=== PATIENT | female | born 1985 | race Hispanic/Latino ===

== ENCOUNTER 2017-02-21 19:41 | Inpatient (IN) | payer MEDICAID, OTHER ==
[~2017-02-21] VITALS: Ht 157.5 cm; Wt 94.8 kg
[2017-02-21] MEDS ORDERED: SODIUM CHLORIDE 0.9% 1000ML 2,000 ML IV ONE (19:56)
[2017-02-21] MEDS ORDERED: ACETAMINOPHEN EXTRA STRENGTH 500 MG TABLET ONE (19:56)
[2017-02-21] MEDS ORDERED: GUAIFENESIN-CODEINE 5 ML SYRUP ONE (20:13)
[2017-02-21 20:22] LABS: BASOPHILS % (AUTO) 0.5 % (0.0-5.0); HEMATOCRIT 33.4 % (36-48); LYMPHOCYTES % (AUTO) 6.6 % (21.0-51.0); MEAN CORPUSCULAR HEMOGLOBIN 28.2 pg (27.0-33.0); MEAN CORPUSCULAR HGB CONC 34.1 g/dL (32.0-36.0); MEAN CORPUSCULAR VOLUME 82.8 fL (79-99); MONOCYTES % (AUTO) 6.5 % (3.0-13.0); NEUTROPHILS % (AUTO) 86.4 % (40.0-77.0); PLATELET COUNT (AUTO) 300 K/uL (130-400); RED BLOOD CELL COUNT(AUTO) 4.03 MIL/uL (4.00-5.50); WHITE BLOOD COUNT (AUTO) 24.4 K/uL (4.8-10.8)
[2017-02-21] MEDS ORDERED: IPRATROPIUM/ALBUTEROL SULFATE 3 ML SOLUTION IH ONE (20:24)
[2017-02-21 20:32] LABS: INR 1.1 (0.85-1.15); PARTIAL THROMBOPLASTIN TIME 29.3 SEC (26.3-35.5); PROTHROMBIN TIME 11.5 SEC (9.6-11.6)
[2017-02-21 20:48] LABS: ALANINE AMINOTRANSFERASE 21 U/L (12-78); ALBUMIN 2.7 g/dL (3.5-5.0); ASPARTATE AMINOTRANSFERASE 21 U/L (10-37); BILIRUBIN,TOTAL 0.8 mg/dL (0.2-1.0); CARBON DIOXIDE 30 mmol/L (21-32); CHLORIDE 92 mmol/L (101-111); CREATINE KINASE MB < 0.5 ng/mL (0.5-3.6); CREATINE KINASE, TOTAL 37 U/L (21-232); CREATININE 0.7 mg/dL (0.5-1.5); GLOMERULAR FILTR. RATE CALC 103 mL/min (>60); GLUCOSE,RANDOM 129 mg/dL (70-105); MYOGLOBIN 28 ng/mL (10-92); SODIUM SERUM 130 mmol/L (136-145); TOTAL PROTEIN, SERUM 7.6 g/dL (6.0-8.3); TROPONIN I < 0.04 ng/mL (0.00-0.06); UREA NITROGEN, BLOOD 3 mg/dL (7-18)
[2017-02-21 20:54] LABS: APPEARANCE,URINE Clear (CLEAR); BILIRUBIN,URINE Negative (NEGATIVE); COLOR,URINE Yellow (YELLOW); GLUCOSE, URINE (UA) Negative (NEGATIVE); KETONES,URINE Negative (NEGATIVE); LEUKOCYTE ESTERASE ,URINE Negative (NEGATIVE); NITRATE,URINE Negative (NEGATIVE); OCCULT BLOOD,URINE Moderate (NEGATIVE); PH,URINE 6.5 (5.0-8.0); PROTEIN,URINE Trace (NEGATIVE)
[2017-02-21 20:56] LABS: POTASSIUM 2.7 mmol/L (3.5-5.1)
[2017-02-21 21:00] LABS: HCG,QUAL RESULT NEGATIVE (NEGATIVE)
[2017-02-21 21:05] LABS: BACTERIA,URINE Rare /HPF (None Seen); RBC,URINE 0-1 /HPF (0-1); WBC,URINE 0-1 /HPF (0-1)
[2017-02-21] MEDS ORDERED: CEFTRIAXONE SODIUM 1 GM ONE (21:10)
[2017-02-21] MEDS ORDERED: POTASSIUM BICARB/CIT AC 25 MEQ TABLET.EFF ONE (21:10)
[2017-02-21] MEDS ORDERED: MAGNESIUM OXIDE 400 MG TABLET PO ONE (21:10)
[2017-02-21] MEDS ORDERED: AZITHROMYCIN 250 MG TABLET PO ONE (21:11)
[2017-02-22] MEDS ORDERED: ONDANSETRON HCL 4 MG/2 ML VIAL IV PRN (01:15)
[2017-02-22] MEDS ORDERED: HYDRALAZINE HCL 20 MG/ML VIAL IV PRN (01:15)
[2017-02-22] MEDS ORDERED: ACETAMINOPHEN 325 MG TAB PO PRN (01:15)
[2017-02-22] MEDS ORDERED: METHYLPREDNISOLONE SOD SUCC 125MG/2ML VIAL ONE (02:42)
[2017-02-22] MEDS ORDERED: SODIUM CHLORIDE 0.9% 1000ML 1,000 ML IV ONE (02:42)
[2017-02-22] MEDS ORDERED: ACETAMINOPHEN-CODEINE 300/30MG TAB ONE (02:43)
[2017-02-22] MEDS ORDERED: IPRATROPIUM/ALBUTEROL SULFATE 3 ML SOLUTION IH ONE ×2 (03:35→10:32)
[2017-02-22] MEDS: IPRATROPIUM/ALBUTEROL SULFATE 3 ML SOLUTION IH SCH ×5 (06:00→22:38)
[2017-02-22] MEDS ORDERED: METHYLPREDNISOLONE SOD SUCC 125MG/2ML VIAL IV SCH (07:37)
[2017-02-22] MEDS: PANTOPRAZOLE SODIUM 40 MG TABLET.DR PO SCH (07:39)
[2017-02-22] MEDS ORDERED: CEFTRIAXONE SODIUM 1 GM ONE (08:31)
[2017-02-22] MEDS ORDERED: DEXTROSE 5%-WATER 50 ML IV ONE (08:32)
[2017-02-22] MEDS ORDERED: PANTOPRAZOLE SODIUM 40 MG TABLET.DR PO ONE (08:32)
[2017-02-22] MEDS ORDERED: CEFTRIAXONE 1GM/D5W 50ML 50 ML IV SCH (09:00)
[2017-02-22 11:00] VITALS: BP 116/72
[2017-02-22] MEDS: SODIUM CHLORIDE 0.9% 1000ML 1,000 ML IV SCH ×2 (11:08→22:47)
[2017-02-22 16:00] VITALS: BP 113/76
[2017-02-22] MEDS: ACETAMINOPHEN-CODEINE 300/30MG TAB PO PRN ×2 (17:03→23:06)
[2017-02-22 20:00] VITALS: BP 127/84
[2017-02-22] MEDS ORDERED: AZITHROMYCIN 500MG+NS 250ML 250 ML IV SCH (21:00)
[2017-02-22] MEDS ORDERED: LIDOCAINE HCL-MPF 1% 2ML VIAL ONE (22:20)
[2017-02-22] MEDS ORDERED: POTASSIUM CHLORIDE 20 MEQ ERTAB PO ONE (22:20)
[2017-02-22] MEDS ORDERED: POTASSIUM CHLORIDE 20MEQ/100ML 100 ML IV ONE (22:21)
[2017-02-22] MEDS ORDERED: POTASSIUM CHLORIDE 20MEQ/100ML 100 ML IV PRN (22:30)
[2017-02-22] MEDS ORDERED: POTASSIUM CHLORIDE 10% ELIXIR 20 MEQ/15 ML UDCUP PO PRN (22:30)
[2017-02-22] MEDS: CEFTRIAXONE SODIUM 1 GM IVP SCH (22:30)
[2017-02-22] MEDS ORDERED: LIDOCAINE HCL-MPF 1% 2ML VIAL IVP PRN (22:30)
[2017-02-22] MEDS: AZITHROMYCIN 250 MG TABLET PO SCH (22:30)
[2017-02-23] VITALS (7 sets, daily range): BP systolic 113–133; BP diastolic 67–81
[2017-02-23] MEDS: POTASSIUM CHLORIDE 20 MEQ ERTAB PO PRN ×3 (00:32→04:08)
[2017-02-23] MEDS: IPRATROPIUM/ALBUTEROL SULFATE 3 ML SOLUTION IH SCH ×6 (01:44→22:39)
[2017-02-23 06:18] LABS: HEMATOCRIT 31.5 % (36-48); MEAN CORPUSCULAR HEMOGLOBIN 27.9 pg (27.0-33.0); MEAN CORPUSCULAR HGB CONC 32.9 g/dL (32.0-36.0); MEAN CORPUSCULAR VOLUME 84.8 fL (79-99); PLATELET COUNT (AUTO) 331 K/uL (130-400); RED BLOOD CELL COUNT(AUTO) 3.72 MIL/uL (4.00-5.50); RED CELL DISTRIBUTION WIDTH 14.1 % (11.0-15.5); WHITE BLOOD COUNT (AUTO) 18.7 K/uL (4.8-10.8)
[2017-02-23 06:35] LABS: CREATININE 0.6 mg/dL (0.5-1.5); POTASSIUM 3.7 mmol/L (3.5-5.1)
[2017-02-23] MEDS: PANTOPRAZOLE SODIUM 40 MG TABLET.DR PO SCH (06:53)
[2017-02-23 07:20] LABS: LYMPHOCYTES % (MANUAL) 14 % (22-44); MONOCYTES % (MANUAL) 5 % (2-9); SEGMENTED NEUTROPHILS % 81 % (40-70)
[2017-02-23 07:21] LABS: MAN.DIFF COMMENT-IMPRESSION MANUAL DIFFERENTIAL; PLATELET MORPHOLOGY COMMENT ADEQUATE
[2017-02-23] MEDS: ACETAMINOPHEN-CODEINE 300/30MG TAB PO PRN ×2 (12:01→23:40)
[2017-02-23] MEDS: SODIUM CHLORIDE 0.9% 1000ML 1,000 ML IV SCH ×2 (12:01→17:08)
[2017-02-23] MEDS: CEFTRIAXONE SODIUM 1 GM IVP SCH (22:01)
[2017-02-23] MEDS: AZITHROMYCIN 250 MG TABLET PO SCH (22:03)
[2017-02-24] MEDS: IPRATROPIUM/ALBUTEROL SULFATE 3 ML SOLUTION IH SCH ×6 (02:41→22:44)
[2017-02-24 03:50] VITALS: BP 127/73
[2017-02-24 06:36] LABS: HEMATOCRIT 29.4 % (36-48); MEAN CORPUSCULAR HEMOGLOBIN 29.9 pg (27.0-33.0); MEAN CORPUSCULAR HGB CONC 35.3 g/dL (32.0-36.0); NUCLEATED RED BLOOD CELLS 0.1 % (0.0-0.19); PLATELET COUNT (AUTO) 349 K/uL (130-400); RED BLOOD CELL COUNT(AUTO) 3.46 MIL/uL (4.00-5.50); RED CELL DISTRIBUTION WIDTH 14.5 % (11.0-15.5); WHITE BLOOD COUNT (AUTO) 10.3 K/uL (4.8-10.8)
[2017-02-24] MEDS: PANTOPRAZOLE SODIUM 40 MG TABLET.DR PO SCH (06:49)
[2017-02-24 07:00] VITALS: BP 132/73
[2017-02-24 07:47] LABS: EOSINOPHILS % (MANUAL) 1 % (1-6); LYMPHOCYTES % (MANUAL) 26 % (22-44); MAN.DIFF COMMENT-IMPRESSION MANUAL DIFFERENTIAL; MONOCYTES % (MANUAL) 5 % (2-9); PLATELET MORPHOLOGY COMMENT ADEQUATE; SEGMENTED NEUTROPHILS % 68 % (40-70)
[2017-02-24 11:00] VITALS: BP 131/83
[2017-02-24] MEDS: GUAIFENESIN 600 MG TABLET.ER PO SCH ×2 (11:54→22:34)
[2017-02-24] MEDS: SODIUM CHLORIDE 0.9% 1000ML 1,000 ML IV SCH ×2 (11:55→23:08)
[2017-02-24 16:00] VITALS: BP 119/92
[2017-02-24 20:02] VITALS: BP 113/79
[2017-02-24] MEDS: AZITHROMYCIN 250 MG TABLET PO SCH (22:34)
[2017-02-24] MEDS: CEFTRIAXONE SODIUM 1 GM IVP SCH (22:34)
[2017-02-24 23:45] VITALS: BP 122/80
[2017-02-25] MEDS: IPRATROPIUM/ALBUTEROL SULFATE 3 ML SOLUTION IH SCH ×4 (02:44→13:28)
[2017-02-25 03:51] VITALS: BP 129/78
[2017-02-25] MEDS: PANTOPRAZOLE SODIUM 40 MG TABLET.DR PO SCH (06:27)
[2017-02-25 07:48] VITALS: BP 120/66
[2017-02-25] MEDS: SODIUM CHLORIDE 0.9% 1000ML 1,000 ML IV SCH (09:08)
[2017-02-25 10:57] VITALS: BP 120/75
[2017-02-25] MEDS: GUAIFENESIN 600 MG TABLET.ER PO SCH (11:52)
[2017-02-25 16:48] VITALS: BP 134/81
== END 2017-02-25 17:20 | disposition home or self-care (01) | DRG 871 ==
LOC: EDH 19:41 → EDHIP 19:42 → 3DH 02-22 11:02
PROVIDERS: ADMIT Family Medicine; ATTEND Family Medicine
DX: A41.9 Sepsis, unspecified organism (principal); J18.1 Lobar pneumonia, unspecified organism; E66.9 Obesity, unspecified; E87.6 Hypokalemia; Z68.38 Body mass index [BMI] 38.0-38.9, adult
CPT/HCPCS: 36415; 71045; 80048; 80053; 81001; 81025; 82550; 82553; 83605; 83874; 84132; 84484; 85025; 85610; 85730; 87040; 87088; 87186; 87804; 93005; 94640; 94664; A4218; J0696; J2930; J3480; J3490; J7030; J7060